=== PATIENT | male | born 1950 | race Two or more races ===

== ENCOUNTER → 2022-10-22 | Emergency (ER) | payer OTHER ==
[~2022-10-22] VITALS: Ht 175.3 cm; Wt 95.9 kg
[~2022-10-22] MED LIST: ADULT ASPIRIN R81 MG PO; CATAPRES-TTS 21 EACH TD; COREG25 MG PO; JARDIANCE25 MG PO; LIPITOR40 MG PO; METFORMIN HCL500 M2 PO; OZEMPIC0.25 MG/0. SQ
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
[2022-10-24 21:13] VITALS: BP 173/99
== END ==
LOC: ED 22:50
DX: F30.9 Manic episode, unspecified (principal); E11.9 Type 2 diabetes mellitus without complications; Z88.8 Allergy status to other drugs, medicaments and biological substances; Z79.899 Other long term (current) drug therapy; Z79.82 Long term (current) use of aspirin; Z79.84 Long term (current) use of oral hypoglycemic drugs; Z20.822 Contact with and (suspected) exposure to COVID-19
CPT/HCPCS: 36415; 80053; 81003; 84443; 85025; 87502; A9270; A9270-GY; G0480; U0003

== ENCOUNTER → 2022-10-29 | Emergency (ER) | payer OTHER, MEDICARE ==
[~2022-10-29] VITALS: Ht 175.3 cm; Wt 95.7 kg
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
[2022-10-31 21:02] VITALS: BP 149/89
== END ==
LOC: ED 13:47
DX: F31.13 Bipolar disorder, current episode manic without psychotic features, severe (principal); I10 Essential (primary) hypertension; E11.9 Type 2 diabetes mellitus without complications; Z88.1 Allergy status to other antibiotic agents; Z79.899 Other long term (current) drug therapy; Z79.82 Long term (current) use of aspirin; Z79.84 Long term (current) use of oral hypoglycemic drugs
CPT/HCPCS: A9270; J1630; J2060

== ENCOUNTER 2023-12-28 06:08 | Emergency (ER) | payer OTHER, MEDICARE ==
[~2023-12-28] VITALS: Ht 175.3 cm; Wt 91.3 kg
[~2023-12-28 06:08] MED LIST changes: -OZEMPIC0.25 MG/0. SQ; +OZEMPIC0.25 MG/0. SUB-Q
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
[2023-12-28 06:42] LABS: HEMOGLOBIN 12.9 g/dL (12.0-18.0)
[2023-12-28 06:45] LABS: BASOPHILS 0.4 % (0-2); EOSINOPHILS 2.9 % (0-6); HEMATOCRIT 38.7 % (35.0-50.0); LYMPHOCYTES 35.3 % (24-44); MCHC 33.2 g/dl (30-36); MCV 90.4 fl (81-99); MONOCYTES 8.1 % (0-12); NEUTROPHILS 53.3 % (39-80); PLATELET COUNT 151 K/uL (140-440); RBC 4.28 M/ul (4.3-5.7); RDW 14.3 (10.5-15.0)
[2023-12-28 06:59] LABS: AMPHETAMINES, URINE NEGATIVE (NEGATIVE); BARBITURATES, URINE NEGATIVE (NEGATIVE); BENZODIAZEPINE, URINE NEGATIVE (NEGATIVE); BUPRENORPHINE, URINE NEGATIVE (NEGATIVE); CANNABINOID, URINE NEGATIVE (NEGATIVE); COCAINE, URINE NEGATIVE (NEGATIVE); ECSTASY, URINE NEGATIVE (NEGATIVE); FENTANYL, URINE NEGATIVE (NEGATIVE); METHADONE, URINE NEGATIVE (NEGATIVE); OPIATES, URINE NEGATIVE (NEGATIVE); OXYCODONE, URINE NEGATIVE (NEGATIVE); PHENCYCLIDINE, URINE NEGATIVE (NEGATIVE)
[2023-12-28 07:03] LABS: ACETAMINOPHEN 0 ug/mL (10-30); ALBUMIN 3.1 g/dL (3.4-5.0); ALBUMIN/GLOBULIN RATIO 0.86 (1.1-2.4); ALCOHOL, MEDICAL <3 ng/dL (<3); ALKALINE PHOSPHATASE 54 U/L (46-116); ALT (SGPT) 15 U/L (14-59); ANION GAP 14.9 (7-21); AST (SGOT) 7 U/L (15-37); BILIRUBIN, TOTAL 0.8 ng/dL (0.2-1.0); BUN/CREATININE RATIO 18.85 (6.0-28.6); CALCIUM 8.7 mg/dL (8.5-10.1); CARBON DIOXIDE 23 mmol/L (21-32); CHLORIDE 98 mmol/L (98-107); CREATININE, SERUM 1.22 mg/dL (0.70-1.30); GLOMERULAR FILTRATION RATE,EST 63 mL/min (>60); POTASSIUM 3.9 mmol/L (3.5-5.1); PROTEIN, TOTAL 6.7 g/dL (6.4-8.2); SALICYLATE 0.4 mg/dL (2.8-20.0); TSH, 3RD GENERATION 1.233 uIU/mL (0.358-3.740); UREA NITROGEN 23 mg/dL (7-18)
[2023-12-28 08:37] VITALS: BP 164/84
== END 2023-12-28 08:37 | disposition home or self-care (01) ==
LOC: ED 06:08
PROVIDERS: Internal Medicine
DX: Z00.8 Encounter for other general examination (principal); E11.9 Type 2 diabetes mellitus without complications; I10 Essential (primary) hypertension; Z88.8 Allergy status to other drugs, medicaments and biological substances; Z79.899 Other long term (current) drug therapy; Z79.82 Long term (current) use of aspirin; Z79.84 Long term (current) use of oral hypoglycemic drugs
CPT/HCPCS: 36415; 80053; 80307; 83036; 84443; 85025; 99283; G0480